=== PATIENT | female | born 1990 | race Caucasian/White ===

== ENCOUNTER 2018-05-26 13:38 | Outpatient (REF) | payer MEDICAID, SELFPAY ==
--- NOTE | 2018-05-26 11:00 | LABIA_PTH ---
PATIENT: Zayda Mcgowan LOC: [facility] U#:[id number] AGE/SX: 28/F ROOM: RE05/26/[address]: Bushra Ferrer : 1990 BED: DIS: 05/26/2018 SPEC #: [id number] RECD: 05/27/18 12:41 STATUS: BIBI REQ #: [id number] BELL: 05/26/18 11:[address]: Bushra Joseph DEPT: Surgical Specimen RECD BY: Karely Cerrato Tissues: 1 - LABIA BX Procedures: GROSS AND MICRO LEVEL 4 Comments: [id number]
== END 2018-05-26 13:58 ==
LOC: NCHCN 13:38
PROVIDERS: PCP Nurse Practitioner Family; Visit Provider Nurse Practitioner Family
DX: D07.2 Carcinoma in situ of vagina (principal); Z87.410 Personal history of cervical dysplasia
CPT/HCPCS: 88305

== ENCOUNTER 2018-12-31 16:45 | Outpatient (REF) | payer MEDICAID, SELFPAY | END 2018-12-31 17:05 | LOC: NCHCN 16:45 | PROVIDERS: PCP Nurse Practitioner Family; Visit Provider Registered Nurse | DX: J02.9 Acute pharyngitis, unspecified (principal) | CPT/HCPCS: 87070 ==

== ENCOUNTER 2020-01-28 09:46 | Outpatient (REF) | payer MEDICAID, SELFPAY ==
[2020-01-28 21:46] LABS: ALT 24 U/L (14-59); AST 42 U/L (15-37); Albumin 3.1 g/dL (3.4-5.0); Alkaline Phosphatase 122 U/L (46-116); Anion Gap 12.9 mmol/L (3-11); BUN 6 mg/dL (7-18); Bilirubin, Total 0.2 mg/dL (0.2-1.0); CO2 21.1 mmol/L (21.0-32.0); CREATININE 0.78 mg/dL (0.55-1.02); Calcium 9.4 mg/dL (8.5-10.1); Chloride 106 mmol/L (98-107); Glucose 97 mg/dL (74-106); Potassium 4.5 mmol/L (3.5-5.1); Sodium 140 mmol/L (136-145); Total Protein 6.7 g/dL (6.4-8.2)
[2020-01-28 21:54] LABS: COMMENT (LAB VIEW ONLY) 226.93 mg/dL; Microalb ug/mg Crea 4.3 ug/mg Cr
== END 2020-01-28 10:06 ==
LOC: NCHCN 09:46
PROVIDERS: PCP Nurse Practitioner Family; Visit Provider Nurse Practitioner Family
DX: Z87.898 Personal history of other specified conditions (principal)
CPT/HCPCS: 80053; 82043; 82570

== ENCOUNTER 2020-02-04 15:15 | Outpatient (REF) | payer MEDICAID, SELFPAY ==
[2020-02-04 20:13] LABS: HCT 40.2 % (36.0-46.0); HGB 13.4 g/dL (11.2-15.7); MCHC 33.3 % (32.0-36.0); MPV 9.8 fL (8.0-11.0); Platelet Count 430 10^3/uL (130-400); RBC 3.94 10^6/uL (3.93-5.22); RDW 12.8 % (11.7-14.6); RDW-SD 47.7 fL; WBC 13.48 10^3/uL (4.4-10.8)
[2020-02-04 20:27] LABS: ALT 18 U/L (14-59); AST 25 U/L (15-37); Alkaline Phosphatase 98 U/L (46-116); Anion Gap 11.6 mmol/L (3-11); BUN 5 mg/dL (7-18); Bilirubin, Total 0.2 mg/dL (0.2-1.0); CO2 24.4 mmol/L (21.0-32.0); CREATININE 0.89 mg/dL (0.55-1.02); Calcium 9.3 mg/dL (8.5-10.1); Chloride 102 mmol/L (98-107); Glucose 101 mg/dL (74-106); Potassium 4.8 mmol/L (3.5-5.1); Sodium 138 mmol/L (136-145); Total Protein 6.9 g/dL (6.4-8.2)
[2020-02-08 12:20] LABS: Hepatitis C Ab w Rflx HCV PCR Reactive (Negative)
[2020-02-10 14:27] LABS: HCV RNA Qualitative Undetected (Undetected)
== END 2020-02-04 15:35 ==
LOC: NCHCN 15:15
PROVIDERS: PCP Nurse Practitioner Family; Visit Provider Nurse Practitioner Family
DX: R74.8 Abnormal levels of other serum enzymes (principal); Z86.19 Personal history of other infectious and parasitic diseases
CPT/HCPCS: 80053; 85027; 86803; 87522; 85610

== ENCOUNTER 2021-07-12 15:41 | Outpatient (CLI) | payer MEDICAID, SELFPAY ==
--- NOTE | 2021-07-12 | DI.CT_ITS ---
Exam(s) CT CHEST PE CTA EXAM: CT CHEST PE CTA CLINICAL HISTORY: COVID,DYSPNEA,R06.00,WORSENING LUNG EXAM,? pe. TECHNIQUE: Imaging Protocol: Axial CT angiography was performed with multi-slice acquisition and mu lti-planar and/or 3D reconstructions. CONTRAST MATERIAL: Intravenous: Omnipaque 350 Contrast volume:100 cc COMPARISON: No exams were available for comparison FINDINGS: Pulmonary Arteries: No evidence of filling defect to suggest pulmonary emboli. Tracheobronchial tree: Patent where visualized. Mediastinum and Shelly: Mild prominence of hilar and subcarinal lymph nodes. Pulmonary parenchyma: Suboptimally evaluated due to expiratory status. Minimal scattered linear opac ities. Minimal scattered ground-glass opacities. No consolidation or dominant measurable mass. Pleura: No effusion or pneumothorax. Heart: The heart is not dilated. No coronary artery calcifications are seen. Aorta: Thoracic aorta non-dilated. No aneurysm. No dissection. Upper abdomen: Unremarkable. Bones: Unremarkable for age. IMPRESSION: No evidence of pulmonary embolism. Small suboptimal evaluation of the lungs due to expiratory changes . Minimal peripheral linear and ground-glass opacities. RADIATION DOSE DELIVERED: 232.89mGy.cm Total DLP DATA REPOSITORY: All CT scans at this facility are submitted to the National Radiology Data Registry (NRDR) Dose Index Registry (DIR) with the [employer] ([employer]). RADIATION OPTIMIZATION: All CT scans at this facility use at least one of these dose optimization te chniques: automated exposure control; mA and/or kV adjustment per patient size (includes targeted exa ms where dose is matched to clinical indication); or iterative reconstruction.
[2021-07-12] MEDS: Omnipaque 350 MG/ML 100 ML BTL IJ (15:40)
== END 2021-07-12 16:01 ==
PROVIDERS: PCP Nurse Practitioner Family; Visit Provider Physician Assistant Medical
DX: R06.09 Other forms of dyspnea (principal); Z86.16 Personal history of COVID-19; R59.0 Localized enlarged lymph nodes; J98.4 Other disorders of lung
CPT/HCPCS: 71275; J3490

== ENCOUNTER 2022-03-14 21:04 | Outpatient (REF) | payer MEDICAID, SELFPAY ==
[2022-03-16 11:09] LABS: COVID-19 RT-PCR UVMMC Result Negative (Negative)
== END 2022-03-14 21:05 | disposition home or self-care (01) ==
LOC: LBN 21:04
PROVIDERS: PCP Nurse Practitioner Family; Visit Provider Physician Assistant Medical
DX: Z20.822 Contact with and (suspected) exposure to COVID-19 (principal); H92.03 Otalgia, bilateral
CPT/HCPCS: U0003